=== PATIENT | male | born 1960 | race Caucasian/White ===

== ENCOUNTER 2016-11-12 13:02 | Emergency (ER) | payer MEDICARE ==
[2016-11-12 13:52] LABS: Hematocrit 24.9 % (42.0-52.0); Hemoglobin 8.8 gm/dL (13.5-18.0); Mean Corpuscular Hemoglobin 33.6 pg (27-31); Mean Corpuscular Hgb Conc 35.3 g/dl (32-36); Mean Platelet Volume 11.2 fl (6.0-9.5); Neutrophil # 4.6 K/mm3 (1.3-6.0); Neutrophil % 77.1 % (42-75.0); Platelet Count 47 K/mm3 (150-450); Red Blood Count 2.62 M/mm3 (4.7-6.0); Red Cell Distribution Width 15.3 % (11.5-14.0); White Blood Count 5.9 K/mm3 (4.0-10.5)
[2016-11-12 14:22] LABS: Albumin * 1.8 gm/dl (3.4-5.0); Anion Gap 14.8 mmol/L (6.8-13.8); BUN/Creatinine Ratio 27.3 (9.0-21.6); Bilirubin, Total 1.3 mg/dL (0.0-1.1); Ca. Corrected For Albumin 8.9 mg/dL (8.4-10.2); Calcium * 7.5 mg/dL (7.9-10.9); Carbon Dioxide 18.8 mmol/L (24-32.6); Potassium 3.6 mmol/L (3.4-4.6); Total Protein 5.4 gm/dL (6.2-8.2)
[2016-11-12 14:32] LABS: Urine Bilirubin 3 mg/dl (NEGATIVE); Urine Blood 250 /ul (NEGATIVE); Urine Ketone Negative (NEGATIVE); Urine Nitrite Negative (NEGATIVE); Urine Protein >=300 mg/dL (NEGATIVE); Urine Specific Gravity 1.025 SP.GR. (1.005-1.030); Urine Urobilinogen Normal (NORMAL); Urine pH 6.5 pH (5.0-7.0)
[2016-11-12 14:43] LABS: Urine Appearance Cloudy; Urine Bacteria TRACE; Urine Color Amber; Urine Hyaline Cast 0-5 /LPF; Urine RBC 25-50 /hpf (0-5); Urine WBC TRACE /hpf (0-5)
[2016-11-12 14:44] LABS: Urine Yeast Moderate - 2+
[2016-11-12 14:56] LABS: Prothrombin Time (Patient) 12.5 Seconds (9.4-11.4)
[2016-11-12 14:57] LABS: INR 1.2 INR (0.90-1.10)
[2016-11-12] MEDS ORDERED: DIATRIZOATE MEGLU/DIATRIZO SOD 30 ML BTL PO ONE (14:57)
[2016-11-12] MEDS ORDERED: DIATRIZOATE MEGLU/DIATRIZO SOD 30 ML BTL ONE (14:58)
[2016-11-12] MEDS ORDERED: MORPHINE SULFATE 2 MG/ML DISP.SYRIN IV ONE (19:20)
[2016-11-12] MEDS ORDERED: ONDANSETRON HCL/PF 2 MG/ML VIAL IV ONE ×2 (19:20→22:11)
[2016-11-12] MEDS ORDERED: ONDANSETRON HCL/PF 2 MG/ML VIAL ONE ×2 (19:24→22:10)
[2016-11-12] MEDS ORDERED: MORPHINE SULFATE 2 MG/ML DISP.SYRIN ONE (19:24)
--- NOTE | 2016-11-12 19:26 | ERNOTE ---
Abdominal HPI - Narrative Date of Service: 11/12/16 - General Chief Complaint: Abdominal Pain Time Seen by Provider: 11/12/16 14:03 Source: patient Exam Limitations: no limitations - Immun/Allergies/Home Medications Immunizatons: IMMUNIZATION HX Immunizations Up to Date Yes History of Influenza Vaccine Yes Hx Pneumococcal Vaccination Yes Allergies/Adverse Reactions: Allergies acetaminophen [From Tylenol] Allergy (Severe, Verified 06/23/16 23:06) Other liver failure end stage Home Medications: HOME MEDICATIONS Furosemide [Lasix] 40 mg PO DAILY 05/02/16 [Last Taken 05/15/16] Insulin Glargine,Hum.rec.anlog [Lantus] 50 units SC DAILY vial 05/08/16 [Last Taken 05/15/16] Insulin Lispro [Humalog] 8 units SC TID 05/16/16 [Last Taken 05/15/16] Spironolactone [Aldactone] 25 mg PO DAILY 05/16/16 [Last Taken Unknown] Ciprofloxacin HCl [Cipro] 500 mg PO BID #20 tablet 06/23/16 [Last Taken Unknown] - History of Present Illness Narrative: Patient relates 4 weeks of increasing abdominal girth and abdominal discomfort. No fever. no vomiting. Some diarrhea. Feels SOB d/t his enlarging abdomen. Also increasing bilateral leg swelling. No cough. Has not seen anyone else for this. Nothign seems ot make it better or worse. Timing: constant, getting worse Quality: moderate, fullness Activities at Onset: none Modifying Factors - (Improves): Present: other - none Modifying Factors - (Worsens): Present: other - none Associated Symptoms: Present: shortness of breath, swelling/mass in abdomen. Absent: chest pain, diarrhea-gross blood, fever/chills Review of Systems - Review of Systems Constitutional: Present: fatigue ENT: Present: no symptoms reported Respiratory: Present: See HPI Cardiology: Absent: chest pain Gastrointestinal/Abdominal: Present: See HPI Genitourinary: Absent: dysuria All Other Systems: All systems neg except as marked - Patient's Past Medical History Patient History - Medical: Diabetes Type 2, Liver Disease Patient History - Cardiac/Respiratory: No pertinent hx Patient History - Cancer: No Hx of Cancer Patient History - Surgical Procedures: T & A, Other - Family History Mother Family History - Medical: Family History - Cardiac/Respiratory: CVA/Stroke, Hypertension Father Family History - Medical: , No pertinent hx - Social History Living Situations: home Smoking Status: Current every day smoker Have you smoked in the past 12 months: Yes Do you dip or chew tobacco: No Alcohol Use: none Drug Use: marijuana, other Physical Exam - Physical Exam General Appearance: Present: alert, no apparent distress Eye Exam: Normal inspection: bilateral, PERRL: bilateral Ears, Nose, Throat: Absent: nasal congestion, pharyngeal erythema, pharyngeal swelling Neck: Present: normal inspection Respiratory: Present: no respiratory distress, normal breath sounds, no accessory muscle use, lungs clear Cardiovascular/Chest: Present: regular rate, rhythm Gastrointestinal/Abdominal: Present: distended, other - Mild diffuse tenderness. No peritoneal signs. 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 Absent: motor weakness Skin Exam: Absent: pallor ED Progress - Results and Orders Patient's Lab Results:: I have reviewed the patient's lab results. - Vital Signs Patient's Vital Signs:: I have reviewed the patient's vital signs. Vital Signs: Vital Signs 11/12/16 11/12/16 11/12/16 13:13 15:03 15:59 Temperature 36.2 C L Pulse Rate 77 67 97 Respiratory 14 14 14 Rate Blood Pressure 166/85 135/64 146/97 O2 Sat by Pulse 100 99 97 Oximetry 11/12/16 17:19 Temperature Pulse Rate 62 Respiratory 14 Rate Blood Pressure 132/51 O2 Sat by Pulse 98 Oximetry - X-Ray X-Ray #1 X-Ray: abdomen Interpretation: Reviewed by me X-ray Comments: Radiology report reviewed - CT/Ultrasound CT/Ultrasound Narrative: Radiology report reviewed. - Progress/Reassessment Chief Complaint: Abdominal Pain Progress:: Re-examined Progress Note-Subjective: 11/12/16 19:24 D/W Dr Carrero, he recommends speaking with OR. Spoke with Dr Guerrero at OR , he recommends transfer to OR IC for inpatient management. Renal failure and new ascites. Pt agreeable, understands transport not covered. Currently medically stable for transfer. Departure - Departure Clinical Impression: Abdominal pain, Renal failure, Ascites Disposition: Other health care facility Condition: Stable Referrals: Gino Khan MD [Primary Care Provider] -
[2016-11-12] MEDS ORDERED: HYDROmorphone HCL 1 MG/ML DISP.SYRIN IV ONE ×2 (20:37→22:11)
[2016-11-12] MEDS ORDERED: HYDROmorphone HCL 1 MG/ML DISP.SYRIN ONE (20:41)
[2016-11-13 00:26] VITALS: BP 155/70
== END 2016-11-12 23:15 | disposition short-term general hospital (02) ==
LOC: ER 13:02
DX: N19 Unspecified kidney failure (principal); R18.8 Other ascites; R10.9 Unspecified abdominal pain; F17.210 Nicotine dependence, cigarettes, uncomplicated

== ENCOUNTER 2016-12-23 12:39 | Emergency (ER) | payer MEDICARE ==
[2016-12-23 13:07] VITALS: BP 135/62
[2016-12-23 13:30] LABS: Mean Cell Volume 98.6 fl (78-100); Mean Corpuscular Hemoglobin 33.6 pg (27-31); Mean Corpuscular Hgb Conc 34.1 g/dl (32-36); Mean Platelet Volume 12.4 fl (6.0-9.5); Neutrophil # 1.8 K/mm3 (1.3-6.0); Neutrophil % 67.1 % (42-75.0); Platelet Count 39 K/mm3 (150-450); Red Blood Count 2.17 M/mm3 (4.7-6.0); Red Cell Distribution Width 14.6 % (11.5-14.0); White Blood Count 2.7 K/mm3 (4.0-10.5)
[2016-12-23 13:40] LABS: Hemoglobin 7.3 gm/dL (13.5-18.0)
[2016-12-23 13:41] LABS: Hematocrit 21.4 % (42.0-52.0)
[2016-12-23 13:49] LABS: Albumin * 2.3 gm/dl (3.4-5.0); Anion Gap 16.9 mmol/L (6.8-13.8); BUN/Creatinine Ratio 33.7 (9.0-21.6); Bilirubin, Total 0.8 mg/dL (0.0-1.1); Ca. Corrected For Albumin 8.7 mg/dL (8.4-10.2); Calcium * 7.7 mg/dL (7.9-10.9); Carbon Dioxide 18.8 mmol/L (24-32.6); Potassium 4.7 mmol/L (3.4-4.6); Total Protein 5.9 gm/dL (6.2-8.2)
--- OUTSIDE RECORDS SUMMARY | 2016-12-23 14:07 | XMS REPORT | Continuity of Care Document ---
:1960 Author Organization [facility] ([facility]) Address [address] [place] [address] Phone [phone] Care Team Providers Name Role Phone Carin Ha Primary Care Provider [phone] Source Comments This disclosure is being made pursuant to the Care Everywhere program, applicable federal and state laws, and may not contain all informaitonavailable regarding this patient.[facility] ([facility]) Active Allergies and Adverse Reactions No Known Allergies Current Medications Prescription Sig. Disp. Refills Start Date End Date Status spironolactone 100 mg Take 200 mg by mouth Active tablet daily. docusate 100 mg capsule Take 1 Cap by mouth 14 Cap 0 06/06/2014 Active 2 times daily. Indications: CONSTIPATION propranolol 10 mg Take 1 Tab by mouth 30 Tab 1 06/06/2014 Active tablet 2 times daily. Indications: HYPERTENSION HYDROmorphone 2 mg Take 1-2 Tabs by 60 Tab 0 06/06/2014 Active tablet mouth every 4 hours as needed. Indications: PAIN furosemide 80 mg tablet Take 80 mg by mouth Active daily. omeprazole 20 mg Take 20 mg by mouth Active extended release daily. capsule Active Problems Problem Noted Date Pre-transplant evaluation for chronic liver disease 08/09/2014 Overview: Meld 16 in 05/2014 Diverticulosis 08/09/2014 RAMON on CPAP 08/09/2014 History of diabetes mellitus 08/09/2014 Overview: Took insulin for 6 months around 2010 Left inguinal hernia 08/09/2014 Cirrhosis HCV ALD, small ascites. 06/03/2014 Hepatitis C 06/03/2014 Resolved Problems Problem Noted Date Resolved Date Incarcerated hernia 06/03/2014 06/06/2014 Abdominal pain, epigastric 01/03/2012 08/09/2014 Most Recent Encounters Date Type Specialty Providers Description 11/20/2016 Lab Requisition Pathology [facility], [facility] Dx: Laboratory test Immunizations Name Dates Previously Given Next Due Pneumococcal Polysaccharide, PPSV23 (Pneumovax 23) 01/04/2012 Social History Tobacco Use Types Packs/Day Years Used Date Current Every Day Smoker 1 35 Smokeless Tobacco: Never Used Tobacco Cessation:Ready to Quit: Yes; Counseling Given: Yes Comments: Alcohol Use Drinks/Week oz/Week Comments No Last Filed Vital Signs Vital Sign Reading Time Taken Blood Pressure 137/78 08/09/2014 9:29 AM CDT Pulse 58 08/09/2014 9:29 AM CDT Temperature 36.5 C (97.7 F) 08/09/2014 9:29 AM CDT Respiratory Rate 18 06/06/2014 11:30 AM CDT Height 1.77 m (5' 9.69") 08/09/2014 9:29 AM CDT Weight 122.2 kg (269 lb 6.4 oz) 08/09/2014 9:29 AM CDT Body Mass Index 39.01 08/09/2014 9:29 AM CDT Oxygen Saturation 100% 06/06/2014 11:30 AM CDT Plan of Care Health Maintenance Due Date Last Done Comments HCV Screening 1960 Hepatitis B Vaccine (1 of 3 - Primary Series) 1960 Tdap Vaccine 1970 Lipid Disorder Screening 1977 MMR Vaccine 1977 Td Vaccine 1977 Colonoscopy 07/25/2009 Pneumococcal Vaccine (2 of 3 - PCV13) 01/03/2013 01/04/2012 Prostate Cancer Screening 08/09/2015 08/09/2014 Influenza Vaccine: Seasonal (#1) 05/20/2016 Results from Last 3 Months SURGICAL PATHOLOGY EXAM (11/20/2016 9:00 AM) Component Value Range Case Report Surgical Pathology Case: [id number] Authorizing Provider:[facility] Collected: 11/20/2016 09:00 AM Pathologist: Vito Murrell MDReceived: 11/20/2016 11:39 AM Specimen:Kidney Biopsy, [place], 11 SLIDES LABELED [id number] Diagnosis Kidney, biopsy: Consistent with IgA dominant glomerulonephritis (see comment), with: Moderate to marked ( mesangioproliferative) activity. Endocapillary hypercellulatity. Global sclerosis in three of eighteen glomeruli (3/18). Mild interstitial fibrosis and mild to moderate tubular atrophy. Features or acute tubular injury. I have personally reviewed this case and edited the report as necessary. Comment By light microscopy, the glomeruli show membranoproliferative features , with mesangial and endocapillary hypercellularity and segmental glomerular capillary loop double contours. Frozen tissue submitt ed for immunofluorescence did not contain glomeruli. Paraffin tissue was sent for immunofluorescence ([employer]), with the following results: Positive glomerular immunofluorescence staining, predominantly with IgA (3+) and lambda light chain (3+) stains. Milder glomerular staining was noted for IgG (1+) and kappa (1+) light chain. Minimal ( trace) staining was noted for IgM. Staining was negative for C3 and C1q in the glomeruli. 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 IgA glomerulonephritis (IGAN ) can be primary or secondary. Secondary IGAN h as been described in biopsies of patients with liver cirrhosis/ hepatobiliary disease. Other causes of secondary IGAN include upper respiratory , and S. aureus infections (among other infections), auto immune diseases (commonly rheumatoid arthritis), among others. Systemic vasculitic forms of IGAN are described within the category of Henoch Schoenlein purpura. Of note, besides IgA staining, lambda l ight chain staining was noted in the glomeruli (with weaker but also positive kappa light chain staining); although the majority of IGAN are lambda predominant, correlation with serum/urine electropho resis and immunofixation studies are suggested, as appropriate, to exclude the possibility of monoclonal gammopathy affecting the kidney. Clinical pathological correlation is necessary. MEST score ([place] classification of IgA nephropathy): M (mesangial)=2-3 (present, moderate to marked) E (endocapillary)=1 (present) S (segmental sclerosis)=0 (absent) T (tubular atrophy/ interstitial fibrosis=1 (present, mild to moderate) Clinical Information 56 year old male with a history of chronic hepatitis C and liver cirrhosis, presenting with hematuria, MICHEL (creatinine of 2.5 from a baseline of 1.0) and 10 grams of proteinuria. Complement levels arenormal by serology. Serology for cryoglobulins is negative. Gross Description Received in Pedro's solution labeled with Gregory Kim and date of , is one fragment of white-sauer cylindrical soft tissue measuring 0.1 cm in length and 0.1 cm in diameter. Allsubmitted for immunofluorescent studies. Received in Glutaraldehyde labeled with Gregory Kim and date of , is one fragment of white-sauer cylindrical soft tissue measuring 0.3 cm in length and 0.1 cm in diameter. Allsubmitted forelectron microscopy. Microscopic Description Light Microscopy: Sections stained with H&E, PAS, Radha trichrome and Plaza silver stain contain renal cortex with 17 glomeruli, 3 of which are globally sclerosed. The glomeruli show a lobulated appearance, with moderate to focally marked mesangial hypercellularity and focal, segmental endocapillary hypercellularity, with rare infiltrating granulocyte-leukocytes. Segmental glomerular capillar y loop double contours are noted, best seen on silver stain. Focally the glomeruli show enlarged podocytes, with increased cytoplasmatic protein droplets. Renal tubules show features of acute tubular injury, with attenuation of the epithelium and brush borders, vacuolization and focal cell sloughing. There is mild interstitial fibrosis and mild to moderate tubular atrophy. Focally renal tubules sh ow microcystic dilatation. There is mild arteriosclerosis. There is no significant arteriolar hyaline sclerosis. IMMUNOFLUORESCENCE: Frozen remotely piloted vehicle controller sections stained with H&E contain renal parenchyma but no glomeruli. Paraffin embedded, glomeruli containing sections sent for immunofluorescence (Jovany Cramer modesto), showed the following results: The majority, though not all glomeruli, show segmental granular predominately capillary loop and finely granular mesangial staining for IgA (3+) and lambda (3+). Gl omeruli also focally reveal segmental granular capillary loop and finely granular mesangial staining for IgG (1+), IgM (trace), and kappa (1+). Glomeruli show no staining for C3 or C1q. [place] and ball da stain equally throughout the tubulointerstitium including cytoplasmic protein resorption droplets and tubular casts. There is no significant tubular basement membrane staining. ELECTRON MICROSCOPY: Toluidine blue stained sections contain renal cortex with 1 glomerulus, which is not globally sclerosed. Ultrastructural glomerular evaluation shows mesangial, subendothelial, and rare subepithelial electron dense deposits. There is segmental glomerular basement membrane remodeling. There is severe (diffuse) podocyte epithelial foot process effacement. Podocyte cytoplasmatic p rotein/ lipoprotein droplets are also noted. Tubulo-reticular inclusions are not identified. PAS stain: Glomerulus. Mesangial and endocapillary hypercellularity. JMS stain: Glomerulus. Mesangial and endocapillary hypercellularity. Segmental Capillary loop double contours. Enlarged podocytes with prominent protein droplets. Electron microscopy: Glomerulus. Subendothelial, mesangial and subepithelial Electron dense deposits. Electron microscopy: Glomerulus. Mesangial and subepithelial electron dense deposits. IHC Section IHC: All controls show appropriate reactivity. This test was developed and its performance characteristics determined by the immunopathology Laboratory at the [facility] and [facility]. It has not been cleared or approved by the US Food and Drug Administration.FDA does not require this test to go through premarket FDA review.This test is used for clinical purposes.It should not be regarded as investigational or fo r research. This laboratory is certified under the Clinical Laboratory Improvement Amendments (CLIA) as qualified to perform high complexity clinical laboratory testing. Specimen Tissue - Kidney Biopsy, [place]
--- NOTE | 2016-12-23 14:14 | ERNOTE ---
Medical Problem HPI - General Chief Complaint: General Assessment Time Seen by Provider: 12/23/16 13:49 Source: patient, family Exam Limitations: no limitations - Immun/Allergies/Home Medications Immunizations: IMMUNIZATION HX Immunizations Up to Date Yes History of Influenza Vaccine No Hx Pneumococcal Vaccination No Allergies/Adverse Reactions: Allergies acetaminophen [From Tylenol] Allergy (Severe, Verified 12/23/16 13:07) Other liver failure end stage Home Medications: HOME MEDICATIONS Furosemide [Lasix] 40 mg PO DAILY 05/02/16 [Last Taken 05/15/16] Insulin Glargine,Hum.rec.anlog [Lantus] 50 units SC DAILY vial 05/08/16 [Last Taken 05/15/16] Insulin Lispro [Humalog] 8 units SC TID 05/16/16 [Last Taken 05/15/16] Spironolactone [Aldactone] 25 mg PO DAILY 05/16/16 [Last Taken Unknown] Ciprofloxacin HCl [Cipro] 500 mg PO BID #20 tablet 12/23/16 [Last Taken Unknown] Hydromorphone HCl [Dilaudid] 4 mg PO QID PRN #40 tab 12/23/16 [Last Taken Unknown] - History of Present History Narrative: Patient has a history of Hep C, liver and kidney failure. He was transferred from [facility] to the [place] where he was hospitalized for three weeks and had a peritoneal tap twice, after discharge was readmitted for another week for renal failure, had his medications adjusted and was discharged 10 days ago. Yesterday when getting out of a chair he twisted his back and has had severe pain in the lumbar area since. Over the last two days he has also notice a change in the color of his urine. It seems darker than usual and he is wondering about dehydration. He has been drinking the same amount of water (about 2quarts). When he wipes after urination the tissue is pink, he denies any amy blood or bleeding anywhere else Review of Systems - Review of Systems Constitutional: Present: recent illness. Absent: fever, chills ENT: Absent: nose congestion, sore throat Respiratory: Absent: shortness of breath, cough Cardiology: Absent: chest pain Gastrointestinal/Abdominal: Absent: nausea, vomiting, abdominal pain Genitourinary: Present: See HPI Musculoskeletal: Present: See HPI, back pain Skin: Absent: rash Neurological: Present: headache. Absent: weakness, numbness Hematologic/Lymphatic: Present: easy bruising - Patient's Past Medical History Patient History - Medical: Diabetes Type 2, Liver Disease, Renal Disease, Renal Failure Patient History - Cardiac/Respiratory: No pertinent hx Patient History - Cancer: No Hx of Cancer Patient History - Surgical Procedures: T & A, Other Patient History - Other: Other - Family History Mother Family History - Medical: Family History - Cardiac/Respiratory: CVA/Stroke, Hypertension Father Family History - Medical: , No pertinent hx - Social History Living Situations: home Abuse History: No History of abuse Psych History: No pertinent hx Smoking Status: Current every day smoker Alcohol Use: none Drug Use: marijuana, other - Immunizations Immunizations Up to Date: Yes Hx Pneumococcal Vaccination: No History of Influenza Vaccine: No Physical Exam - Physical Exam General Appearance: Present: wd/wn, alert, no apparent distress Eye Exam: Normal inspection: bilateral Ears, Nose, Throat: Present: normal pharynx Respiratory: Present: no respiratory distress, normal breath sounds, no accessory muscle use, lungs clear Cardiovascular/Chest: Present: regular rate, rhythm, no murmur Gastrointestinal/Abdominal: Present: normal bowel sounds, nontender, nondistended Back Exam: Present: normal inspection, vertebral tenderness - upper lumbar area Extremity Exam: Present: pedal edema Neurological Exam: Present: alert, oriented, normal mood/affect Skin Exam: Present: warm/dry, other - queen ED Progress - Results and Orders Patient's Lab Results:: I have reviewed the patient's lab results. - Vital Signs Patient's Vital Signs:: I have reviewed the patient's vital signs. Vital Signs: Vital Signs 12/23/16 13:03 Temperature 36.9 C Pulse Rate 73 Respiratory 19 Rate Blood Pressure 135/62 O2 Sat by Pulse 100 Oximetry - X-Ray X-Ray #1 X-Ray: lumbosacral - stable compression fx, no acute changes Interpretation: Reviewed by me - Progress/Reassessment Chief Complaint: General Assessment Progress Note-Subjective: 12/23/16 16:18 discussed results with patient and family will increased one weekly cipro to bid increase the dilaudid for pain to 4mg thrombocytopenia, anemia, renal and liver failure chronic stable has follow up at the [place] in 4days Departure - Departure Clinical Impression: Renal failure, Thrombocytopenia Back pain Qualifiers: Back pain location: low back pain Chronicity: unspecified Back pain laterality : midline Sciatica presence: without sciatica Qualified Code(s): M54.5 - Low back pain UTI (urinary tract infection) Qualifiers: Urinary tract infection type: acute cystitis Hematuria presence: with hematuria Qualified Code(s): N30.01 - Acute cystitis with hematuria Anemia Qualifiers: Anemia type: unspecified type Qualified Code(s): D64.9 - Anemia, unspecified Disposition: Home self-care Condition: Fair Instructions: Urinary Tract Infection, Adult, [id number], Back Pain, Adult, [id number] Additional Instructions[facility] Referrals: Gino Khan MD [Primary Care Provider] - Prescriptions: Ciprofloxacin HCl [Cipro] 500 mg PO BID #20 tablet Hydromorphone HCl [Dilaudid] 4 mg PO QID PRN #40 tab PRN Reason: Pain
[2016-12-23 14:16] LABS: Prothrombin Time (Patient) 12.9 Seconds (9.4-11.4)
[2016-12-23 14:17] LABS: INR 1.24 INR (0.90-1.10); Partial Thrombolplastin Time 32.4 Seconds (24-32)
[2016-12-23 14:27] LABS: Urine Bilirubin 1 mg/dl (NEGATIVE); Urine Blood 250 /ul (NEGATIVE); Urine Ketone Negative (NEGATIVE); Urine Nitrite Negative (NEGATIVE); Urine Protein >=300 mg/dL (NEGATIVE); Urine Specific Gravity 1.025 SP.GR. (1.005-1.030); Urine Urobilinogen Normal (NORMAL); Urine pH 5.5 pH (5.0-7.0)
[2016-12-23 14:36] LABS: Urine Appearance Slightly Cloudy; Urine Bacteria 3+; Urine Color Dark Yellow; Urine Mucus Few - 1+; Urine RBC 25-50 /hpf (0-5); Urine Yeast Few - 1+
[2016-12-23] MEDS ORDERED: HYDROmorphone HCL 2 MG TABLET PO ONE (16:14)
[2016-12-23] MEDS ORDERED: HYDROmorphone HCL 2 MG TABLET ONE (16:28)
== END 2016-12-23 16:20 | disposition home or self-care (01) ==
LOC: ER 12:39
DX: N19 Unspecified kidney failure (principal); D69.59 Other secondary thrombocytopenia; K75.4 Autoimmune hepatitis; M54.5 Low back pain; N30.01 Acute cystitis with hematuria; D64.9 Anemia, unspecified; Z72.0 Tobacco use